=== PATIENT | female | born 1975 | race Caucasian/White ===

== ENCOUNTER → 2016-10-20 | Outpatient (CLI) | payer BC, OTHER | LOC: WI 12:55 | PROVIDERS: ATTEND Internal Medicine | DX: M81.0 Age-related osteoporosis without current pathological fracture (principal) | CPT/HCPCS: 77080 ==

== ENCOUNTER → 2016-10-26 | Outpatient (CLI) | payer BC | LOC: RAD 10:04 | PROVIDERS: ATTEND Specialist | DX: C50.212 Malignant neoplasm of upper-inner quadrant of left female breast (principal) | CPT/HCPCS: 71020; 78306; A9503; Q9969 ==

== ENCOUNTER → 2016-11-29 | Outpatient (CLI) | payer BC, OTHER ==
--- NOTE | 2016-11-30 12:41 | WOMENS IMAGING REPORT ---
EXAM DESCRIPTION: LEFT DIAGNOSTIC MAMMO W/CAD COMPLETED DATE/TIME: 11/29/2016 1:31 pm REASON FOR STUDY: C50.411 C50.212 MALIG NEOPLASM OF UPPER-INNER QUADRANT OF LEFT FEMAL COMPARISON: Multiple since 2011 TECHNIQUE: Standard craniocaudal and mediolateral oblique images of the breast recorded with digital acquisition. Additional left breast compression magnification views of the lumpectomy site in the far upper inner breast LIMITATIONS: None. FINDINGS: BREAST: Left MASSES: No suspicious masses. CALCIFICATIONS: No new or suspicious calcifications. ARCHITECTURAL DISTORTION: Postsurgical changes in the far upper inner left breast. DEVELOPING DENSITY: None. ASYMMETRY: None noted. OTHER: No other significant findings. Read with the assistance of CAD. .[facility] - R2 Cenova Version 1.3 .[facility] Imaging - R2 Cenova Version 1.3 .[facility] Imaging - R2 Cenova Version 2.4 .[facility] [place] R2 Cenova Version 2.4 .[facility] - R2 Employee Benefits Manager Version 9.2 IMPRESSION: No mammographic evidence for malignancy left breast BREAST DENSITY: c. The breasts are heterogeneously dense, which may obscure small masses. BIRAD: 2 Benign findings. RECOMMENDATION: RECOMMENDED FOLLOW UP: Patient is due for right breast screening left breast diagnos tic mammograms in May 2017 SPECIFIC INTERVENTION/IMAGING/CONSULTATION RECOMMENDED:No additional intervention/ imaging/consultati on needed at this time. COMMUNICATION:Patient notified by letter COMMENT: The patient has been notified of the results by letter per SA requirements. Additional no tification policies are in place for contacting patient with suspicious or incomplete findings. Quality ID #[id number]: The [employer] recommends an annual screening mammogram for women aged 40 years or over. This facility utilizes a reminder system to ensure that all patients receive reminder letters, and/or direct phone calls for appointments. This includes reminders for routine scr eening mammograms, diagnostic mammograms, or other Breast Imaging Interventions when appropriate. Th is patient will be placed in the appropriate reminder system. The [employer] (ACR) has developed recommendations for screening MRI of the breast s in certain patient populations, to be used in conjunction with mammography. Breast MRI surveillanc e may be appropriate for women with more than 20% lifetime risk of developing breast cancer as deter mined by genetic testing, significant family history of the disease, or history of mantle radiation f or Hodgkins Disease. ACR Practice Guidelines 2008. TECHNICAL DOCUMENTATION: FINDING NUMBER: (1) ASSESSMENT: (1) JOB ID: [id number] [employer]- All Rights Reserved
== END ==
LOC: WI 12:46
PROVIDERS: ATTEND Radiology Radiation Oncology
DX: C50.212 Malignant neoplasm of upper-inner quadrant of left female breast (principal)
CPT/HCPCS: G0206-52

== ENCOUNTER → 2016-12-30 | Outpatient (CLI) | payer BC, OTHER ==
--- NOTE | 2016-12-30 20:41 | RADIOLOGY REPORT (SQ) ---
EXAM DESCRIPTION: MRI BREAST BILAT W AND/OR WO COMPLETED DATE/TIME: 12/30/2016 3:57 pm REASON FOR STUDY: MAL PAM OF UPPER INNER QUADRANT OF FEMALE BREAST C50.212 MALIG NEOPLASM OF UPPER- INNER QUADRANT OF LEFT FEMAL COMPARISON: Mammography 11/29/2016 and priors PATHOLOGIC CORRELATION: Malignancy left breast CONTRAST TYPE AND DOSE: 20 mL Prohance. RENAL FUNCTION: None required. The patient is less than 50 years old. TECHNIQUE: MR imaging performed with a dedicated breast coil. Pre contrast T1 and T2 weighted images . Pre contrast and post contrast enhanced T1 weighted images with fat saturation. Subtraction images, 3D thick and thin MIPS, and kinetic analysis performed on an independent workstat ion. (Talking Data workstation) Magnet strength: 1.5 T LIMITATIONS: None. FINDINGS: BREAST DENSITY: c. The breasts are heterogeneously dense, which may obscure small masses. BACKGROUND PARENCHYMAL ENHANCEMENT:Moderate. RIGHT BREAST: No enhancing or suspicious masses. No clumped, regional/segmental ductal enhancement. CHEST WALL: Normal tissue planes. No abnormal internal mammary nodes. AXILLA: Normal axillary and retro-pectoral nodes. LEFT BREAST:No enhancing or suspicious masses. No clumped, regional/segmental ductal enhancement. Seroma medial breast measuring 2.6 x 1.4 cm. CHEST WALL: Normal tissue planes. No abnormal internal mammary nodes. AXILLA: Normal axillary and retro-pectoral nodes. OTHER:No identified liver, bone, or lung lesions. No other significant incidental findings. IMPRESSION: Left breast seroma. No suspicious findings. BIRAD: RIGHT BREAST: 1 Negative. LEFT BREAST: 2 Benign findings. RECOMMENDATION: RECOMMENDED FOLLOW-UP: High risk screening protocol. TECHNICAL DOCUMENTATION: JOB ID: [id number] [employer]- All Rights Reserved
== END ==
LOC: RAD 13:48
PROVIDERS: ATTEND Radiology Radiation Oncology
DX: C50.212 Malignant neoplasm of upper-inner quadrant of left female breast (principal); C77.3 Secondary and unspecified malignant neoplasm of axilla and upper limb lymph nodes
CPT/HCPCS: A9576; C8906; 77059

== ENCOUNTER → 2017-05-30 | Outpatient (CLI) | payer BC, OTHER ==
--- NOTE | 2017-05-30 17:42 | WOMENS IMAGING REPORT ---
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 Additional left breast 90 mediolateral view LIMITATIONS: None. FINDINGS: RIGHT BREAST MASSES: No suspicious masses. CALCIFICATIONS: No new or suspicious calcifications. ARCHITECTURAL DISTORTION: None. DEVELOPING DENSITY: None. ASYMMETRY: None noted. OTHER: No other significant findings. LEFT BREAST MASSES: No suspicious masses. CALCIFICATIONS: No new or suspicious calcifications. ARCHITECTURAL DISTORTION: None. DEVELOPING DENSITY: None. ASYMMETRY: None noted. OTHER: Surgical clips far upper outer quadrant left breast post lumpectomy Read with the assistance of CAD: .[facility] - R2 Cenova Version 1.3 .[facility] Imaging - R2 Cenova Version 1.[address] Imaging - R2 Cenova Version 2.4 .[facility] - R2 Cenova Version 2.4 .[facility] - R2 Steel Turner Version 9.2 IMPRESSION: No mammographic/ tomosynthesis evidence for malignancy bilaterally BREAST DENSITY: c. The breasts are heterogeneously dense, which may obscure small masses. BIRAD: 2 Benign findings. RECOMMENDATION: RECOMMENDED FOLLOW UP: Please continue yearly bilateral screening tomosynthesis in N 2017 SPECIFIC INTERVENTION/IMAGING/CONSULTATION RECOMMENDED:No additional intervention/ imaging/consultati on needed at this time. COMMUNICATION:The negative/benign results were communicated to the patient. COMMENT: The patient has been notified of the results by letter per SA requirements. Additional no tification policies are in place for contacting patient with suspicious or incomplete findings. Quality ID #[id number]: The [employer] recommends an annual screening mammogram for women aged 40 years or over. This facility utilizes a reminder system to ensure that all patients receive reminder letters, and/or direct phone calls for appointments. This includes reminders for routine scr eening mammograms, diagnostic mammograms, or other Breast Imaging Interventions when appropriate. Th is patient will be placed in the appropriate reminder system. The [place] [employer] (ACR) has developed recommendations for screening MRI of the breast s in certain patient populations, to be used in conjunction with mammography. Breast MRI surveillanc e may be appropriate for women with more than 20% lifetime risk of developing breast cancer as deter mined by genetic testing, significant family history of the disease, or history of mantle radiation f or Hodgkins Disease. ACR Practice Guidelines 2008. DBT Technology DBT is a type of tomographic mammography. With conventional mammography, overlapping breast tissue ma y make lesions difficult to detect, even with good compression. DBT uses an x-ray tube that rotates a round the breast, taking images at different angles. These images are then combined to create thin sl ices of the breast that the radiologist can view as a 3D reconstruction. The [employer] unit can perform full-field digital mammograms (2D imaging); or DBT (3D imaging); or both, in a combination mode that quickly performs both the mammogram and the tomosynthesis scan while the breast is still compressed. PQRS 6045F: Fluoroscopic imaging is not utilized for breast tomosynthesis. TECHNICAL DOCUMENTATION: FINDING NUMBER: (1) ASSESSMENT: (1) JOB ID: [id number] [employer]- All Rights Reserved
== END ==
LOC: WI 13:07
PROVIDERS: ATTEND Radiology Radiation Oncology
DX: C50.212 Malignant neoplasm of upper-inner quadrant of left female breast (principal); C77.3 Secondary and unspecified malignant neoplasm of axilla and upper limb lymph nodes
CPT/HCPCS: G0279; G0204; 77062; 77066

== ENCOUNTER → 2017-06-27 | Outpatient (CLI) | payer BC ==
[2017-06-27 18:15] LABS: ABSOLUTE LYMPHOCYTES (AUTO) 1.9 10^3/uL (0.5-4.7); ABSOLUTE MONOCYTES (AUTO) 0.4 10^3/uL (0.1-1.4); ABSOLUTE NEUT (AUTO) 3.8 10^3/uL (1.7-8.2); BASOPHILS % (AUTO) 0.6 % (0-2); EOSINOPHILS % (AUTO) 0.8 % (0-6); HEMATOCRIT 40.3 % (36.0-47.0); HEMOGLOBIN 13.8 g/dL (12.0-15.5); HGB HCT DIFFERENCE 1.1; LYMPHOCYTES % (AUTO) 30.1 % (13-45); MEAN CORPUSCULAR HEMOGLOBIN 33.9 pg (27.0-33.4); MEAN CORPUSCULAR HGB CONC 34.3 g/dL (32.0-36.0); MEAN CORPUSCULAR VOLUME 99 fl (80-97); MONOCYTES % (AUTO) 6.6 % (3-13); RED BLOOD COUNT 4.08 10^6/uL (3.72-5.28); RED CELL DISTRIBUTION WIDTH 13.2 % (11.5-14.0); SEGMENTED NEUTROPHILS % (AUTO) 61.9 % (42-78); WHITE BLOOD COUNT 6.2 10^3/uL (4.0-10.5)
[2017-06-27 18:40] LABS: ALANINE AMINOTRANSFERASE 37 U/L (9-52); ALBUMIN 4.4 g/dL (3.5-5.0); ALKALINE PHOSPHATASE 63 U/L (38-126); ASPARTATE AMINO TRANSFERASE 32 U/L (14-36); TOTAL PROTEIN 6.7 g/dL (6.3-8.2)
[2017-06-27 19:05] LABS: BILIRUBIN,DIRECT 0.2 mg/dL (0.0-0.4); BILIRUBIN,TOTAL 0.4 mg/dL (0.2-1.3)
== END ==
LOC: OD 16:55
PROVIDERS: ATTEND Radiology Radiation Oncology
DX: C50.212 Malignant neoplasm of upper-inner quadrant of left female breast (principal); C77.3 Secondary and unspecified malignant neoplasm of axilla and upper limb lymph nodes
CPT/HCPCS: 36415; 80076; 85025

== ENCOUNTER → 2018-05-30 | Outpatient (CLI) | payer BC, OTHER ==
--- NOTE | 2018-05-30 13:31 | WOMENS IMAGING REPORT ---
EXAM DESCRIPTION: 3D DX MAMMO BILAT COMPLETED DATE/TIME: 05/30/2018 10:54 am REASON FOR STUDY: BILATERAL DIAGNOSTIC MAMMO/C50.212 C50.212 MALIG NEOPLASM OF UPPER-INNER QUADRANT OF LEFT FEMAL COMPARISON: Multiple since 2011 TECHNIQUE: Standard craniocaudal and mediolateral oblique views of each breast recorded using digita l acquisition and breast tomosynthesis. Additional left breast exaggerated craniocaudad and 90 mediolateral views LIMITATIONS: None. FINDINGS: RIGHT BREAST MASSES: No suspicious masses. CALCIFICATIONS: No new or suspicious calcifications. ARCHITECTURAL DISTORTION: None. DEVELOPING DENSITY: None. ASYMMETRY: None noted. OTHER: No other significant findings. LEFT BREAST MASSES: No suspicious masses. CALCIFICATIONS: No new or suspicious calcifications. ARCHITECTURAL DISTORTION: None. DEVELOPING DENSITY: None. ASYMMETRY: None noted. OTHER: Surgical clips in the far left upper outer quadrant Read with the assistance of CAD: .[facility] - R2 Cenova Version 1.3 .[facility] Imaging - R2 Cenova Version 1.3 .[facility] Imaging - R2 Cenova Version 2.4 .[facility] [place] R2 Cenova Version 2.4 .[facility] - R2 Industrial Chemist Version 9.2 IMPRESSION: No mammographic/ tomosynthesis evidence for malignancy bilaterally BREAST DENSITY: c. The breasts are heterogeneously dense, which may obscure small masses. BIRAD: 2 Benign findings. RECOMMENDATION: RECOMMENDED FOLLOW UP: Please continue right breast screening left breast diagnostic tomosynthesis in May 2019 SPECIFIC INTERVENTION/IMAGING/CONSULTATION RECOMMENDED:No additional intervention/ imaging/consultati on needed at this time. COMMUNICATION:Patient notified by letter COMMENT: The patient has been notified of the results by letter per SA requirements. Additional no tification policies are in place for contacting patient with suspicious or incomplete findings. Quality ID #225: The [employer] recommends an annual screening mammogram for women aged 40 years or over. This facility utilizes a reminder system to ensure that all patients receive reminder letters, and/or direct phone calls for appointments. This includes reminders for routine scr eening mammograms, diagnostic mammograms, or other Breast Imaging Interventions when appropriate. Th is patient will be placed in the appropriate reminder system. The [employer] (ACR) has developed recommendations for screening MRI of the breast s in certain patient populations, to be used in conjunction with mammography. Breast MRI surveillanc e may be appropriate for women with more than 20% lifetime risk of developing breast cancer as deter mined by genetic testing, significant family history of the disease, or history of mantle radiation f or Hodgkins Disease. ACR Practice Guidelines 2008. DBT Technology DBT is a type of tomographic mammography. With conventional mammography, overlapping breast tissue ma y make lesions difficult to detect, even with good compression. DBT uses an x-ray tube that rotates a round the breast, taking images at different angles. These images are then combined to create thin sl ices of the breast that the radiologist can view as a 3D reconstruction. The [employer] unit can perform full-field digital mammograms (2D imaging); or DBT (3D imaging); or both, in a combination mode that quickly performs both the mammogram and the tomosynthesis scan while the breast is still compressed. PQRS 6045F: Fluoroscopic imaging is not utilized for breast tomosynthesis. TECHNICAL DOCUMENTATION: FINDING NUMBER: (1) ASSESSMENT: (1) JOB ID: [id number] [employer]- All Rights Reserved Reading location - IP/workstation name: [facility]
== END ==
LOC: WI 10:28
PROVIDERS: ATTEND Internal Medicine Hematology & Oncology
DX: C50.212 Malignant neoplasm of upper-inner quadrant of left female breast (principal)
CPT/HCPCS: 77066; G0279; 77062

== ENCOUNTER 2018-06-27 07:23 | Observation (INO) | payer BC, OTHER ==
--- NOTE | 2018-06-27 10:04 | PDOC H&P ---
History of Present Illness Patient complains of: Rectal pain and swelling History of Present Illness: CAREY HERMOSILLO is a 43 year old female with a 2-day history of rectal pain and swelling. The patient has experienced hemorrhoids before, however she has never had anything as severe as this. The patient denies any inciting events. She denies constipation, straining, lifting, or other strenuous activity. The patient woke up with a small amount of pain in the rectum on June 25, and the pain progressed steadily throughout the day. Today, her pain is sharp, stabbing, severe, and unrelenting. It does not radiate. Palpation and movement make it worse. Nothing makes it better. The patient denies melena, hematochezia, constipation, diarrhea, chest pain, shortness of breath, fevers, chills, nausea, vomiting, dizziness, blurry vision, orthostasis, malaise, or fatigue. The patient has a history of breast cancer. She denies any other significant medical problems. Past Medical History Cardiac Medical History: Denies: Coronary Artery Disease, Myocardial Infarction, Hypertension Pulmonary Medical History: Denies: Asthma, Bronchitis, Chronic Obstructive Pulmonary Disease (COPD), Pneumonia Neurological Medical History: Denies: Seizures Malignancy Medical History: Reports: Breast Cancer GI Medical History: Denies: Hepatitis, Hiatal Hernia Musculoskeltal Medical History: Denies: Arthritis Hematology: Denies: Anemia, Sickle Cell Disease Past Surgical History Past Surgical History: Reports: Tubal Ligation Denies: Amputation, Hysterectomy, Mastectomy, Pacemaker Social History Smoking Status: Former Smoker Hx Recreational Drug Use: No Hx Prescription Drug Abuse: No Family History Parental Family History Reviewed: Yes Children Family History Reviewed: Yes Sibling(s) Family History Reviewed.: Yes Medication/Allergy Home Medications: Alprazolam [Xanax 0.25 mg Tablet] 5 mg PO PRN PRN 04/22/14 Fluoxetine HCl [Prozac 20 mg Capsule] 40 mg PO DAILY 04/22/14 Loratadine [Claritin 10 mg Tablet] 10 mg PO DAILY 06/24/15 Ondansetron HCl [Zofran 8 mg Tablet] 8 mg PO ASDIR PRN 06/24/15 Promethazine HCl [Phenergan 25 mg Tablet] 25 - 50 mg PO ASDIR PRN 06/24/15 Oxycodone HCl/Acetaminophen [Percocet 5-325 mg Tablet] 1 - 2 tab PO ASDIR PRN #15 tablet 07/08/15 Gabapentin [Neurontin 100 mg Capsule] 100 mg PO DAILY 10/21/15 Oxycodone HCl/Acetaminophen [Percocet 5-325 mg Tablet] 1 - 2 tab PO ASDIR PRN #15 tablet 10/28/15 Allergies/Adverse Reactions: adhesive [Adhesive] Adverse Reaction (Intermediate, Verified 06/27/18 07:28) SKIN IRRITATION WITH SOME ADHESIVES Review of Systems Constitutional: ABSENT: anorexia, chills, fatigue, fever(s) Eyes: ABSENT: visual disturbances Ears: ABSENT: hearing changes Nose, Mouth, and Throat: ABSENT: sore throat Cardiovascular: ABSENT: chest pain Respiratory: ABSENT: cough, dyspnea Gastrointestinal: PRESENT: other - painful rectal swelling. ABSENT: abdominal pain, bloating, constipation, hematemesis, hematochezia, melena, nausea, vomiting Genitourinary: ABSENT: dysuria Musculoskeletal: ABSENT: back pain Integumentary: ABSENT: pruritus, rash Neurological: ABSENT: confusion, convulsions, dizziness Psychiatric: PRESENT: anxiety - history of anxiety. ABSENT: depression Hematologic/Lymphatic: ABSENT: easy bleeding, easy bruising Physical Exam Vital Signs: Temp Pulse Resp BP Pulse Ox 97.8 F 90 16 109/73 100 06/27/18 07:30 06/27/18 07:30 06/27/18 07:30 06/27/18 07:30 06/27/18 07:30 Intake & Output 06/26/18 06/27/18 06/28/18 06:59 06:59 06:59 Weight 67.2 kg General appearance: PRESENT: cooperative, mild distress - Rectal pain Head exam: PRESENT: atraumatic, normocephalic Eye exam: PRESENT: EOMI, PERRLA. ABSENT: scleral icterus Mouth exam: PRESENT: moist, neck supple Teeth exam: ABSENT: poor dentation Neck exam: ABSENT: meningismus, tenderness, thyromegaly, tracheal deviation Respiratory exam: PRESENT: clear to auscultation brigido, unlabored. ABSENT: chest wall tenderness, tachypnea, wheezes Cardiovascular exam: PRESENT: RRR Pulses: PRESENT: normal radial pulses Vascular exam: PRESENT: normal capillary refill. ABSENT: pallor GI/Abdominal exam: PRESENT: soft. ABSENT: tenderness Rectal exam: PRESENT: hemorrhoids - Thrombosed external hemorrhoid in the left lateral position Extremities exam: ABSENT: clubbing Neurological exam: PRESENT: alert, awake, oriented to person, oriented to place, oriented to time, oriented to situation, CN II-XII grossly intact. ABSENT: motor sensory deficit Psychiatric exam: ABSENT: agitated, anxious, depressed Focused psych exam: ABSENT: delusional Skin exam: ABSENT: cyanosis, erythema, jaundice Assessment & Plan - Diagnosis (1) Thrombosed external hemorrhoids Is this a current diagnosis for this admission?: Yes - Plan Summary Plan Summary: This is a 43-year-old female with a 2-day history of rectal pain and swelling. On exam, she has a very large thrombosed external hemorrhoid in the left lateral position. I have offered her several options. These include medical management versus surgical excision. The patient has chosen definitive surgical treatment. Plan for operative intervention today. Risks/benefits discussed, informed consent obtained, and all questions answered.
--- NOTE | 2018-06-27 10:43 | ER Document Report ---
ED General - General Chief Complaint: Rectal Pain Stated Complaint: RECTAL PAIN Time Seen by Provider: 06/27/18 08:38 Mode of Arrival: Ambulatory Information source: Patient TRAVEL OUTSIDE OF THE [place] IN LAST 30 DAYS: No - HPI Patient complains to provider of: Rectal pain Onset: Other - 3-year-old female presents for evaluation of rectal pain in the setting of a previous hemorrhoid. She notes that she is been having to sit into the bathtub to try and get any relief as she is been having persistent horrible rectal pain. Nothing is made it better nothing is made it worse she is never had anything like this in the past. Denies any trauma to the rectum or otherwise. - Related Data Allergies/Adverse Reactions: adhesive [Adhesive] Adverse Reaction (Intermediate, Verified 06/27/18 07:28) SKIN IRRITATION WITH SOME ADHESIVES Past Medical History - General Information source: Patient - Social History Smoking Status: Former Smoker Chew tobacco use (# tins/day): No Frequency of alcohol use: Social Drug Abuse: None Family History: None Patient has suicidal ideation: No Patient has homicidal ideation: No - Past Medical History Cardiac Medical History: Denies: Hx Coronary Artery Disease, Hx Heart Attack, Hx Hypertension Pulmonary Medical History: Denies: Hx Asthma, Hx Bronchitis, Hx COPD, Hx Pneumonia Neurological Medical History: Denies: Hx Cerebrovascular Accident, Hx Seizures Renal/ Medical History: Denies: Hx Peritoneal Dialysis Malignancy Medical History: Reports: Hx Breast Cancer GI Medical History: Denies: Hx Hepatitis, Hx Hiatal Hernia, Hx Ulcer Musculoskeletal Medical History: Denies Hx Arthritis Infectious Medical History: Denies: Hx Hepatitis Past Surgical History: Reports: Hx Gynecologic Surgery, Hx Tubal Ligation. Denies: Hx Hysterectomy, Hx Mastectomy, Hx Open Heart Surgery, Hx Pacemaker - Immunizations Hx Diphtheria, Pertussis, Tetanus Vaccination: Yes Review of Systems - Review of Systems -: Yes All other systems reviewed and negative Physical Exam - Vital signs Vitals: Temp Pulse Resp BP Pulse Ox 97.8 F 90 16 109/73 100 06/27/18 07:30 06/27/18 07:30 06/27/18 07:30 06/27/18 07:30 06/27/18 07:30 Interpretation: Normal - General General appearance: Appears well, Alert - HEENT Head: Normocephalic, Atraumatic Eyes: Normal Pupils: PERRL - Respiratory Respiratory status: No respiratory distress Chest status: Nontender Breath sounds: Normal Chest palpation: Normal - Cardiovascular Rhythm: Regular Heart sounds: Normal auscultation Murmur: No - Abdominal Inspection: Normal Distension: No distension Bowel sounds: Normal Tenderness: Nontender Organomegaly: No organomegaly - Rectal Tenderness: Yes Hemorrhoids: External - External hemorrhoid, terse, profoundly tender - Back Back: Normal, Nontender - Extremities General upper extremity: Normal inspection, Nontender, Normal color, Normal ROM, Normal temperature General lower extremity: Normal inspection, Nontender, Normal color, Normal ROM, Normal temperature, Normal weight bearing. No: Edouard's sign - Neurological Neuro grossly intact: Yes Cognition: Normal Orientation: AAOx4 Greyson Coma Scale Eye Opening: Spontaneous Jackson Coma Scale Verbal: Oriented Jackson Coma Scale Motor: Obeys Commands Jackson Coma Scale Total: 15 Speech: Normal Motor strength normal: LUE, RUE, LLE, RLE Sensory: Normal - Psychological Associated symptoms: Normal affect, Normal mood - Skin Skin Temperature: Warm Skin Moisture: Dry Skin Color: Normal Course - Re-evaluation Re-evalutation: 06/27/18 10:42 This is a 43-year-old female with profound rectal pain. On examination she has an external hemorrhoid which is tense in nature and exquisitely tender. Believe that this patient would benefit from evaluation for potential excision. Have contacted on-call surgical list Dr. Fox who agrees to evaluate the patient. He will admit this patient for operative intervention and management. - Vital Signs Vital signs: Temp Pulse Resp BP Pulse Ox 97.8 F 90 16 109/73 100 06/27/18 07:30 06/27/18 07:30 06/27/18 07:30 06/27/18 07:30 06/27/18 07:30 Discharge - Discharge Clinical Impression: Hemorrhoid thrombosis, Rectal pain Condition: Stable Disposition: ADMITTED INPATIENT Admitting Provider: Surgicalist Unit Admitted: Surgical Floor
[2018-06-27] MEDS ORDERED: KETOROLAC TROMETHAMINE 60 MG/2 ML SDV ONE (10:56)
[2018-06-27] MEDS ORDERED: ONDANSETRON HCL INJ/PF 4 MG/2 ML SDV ONE (10:56)
[2018-06-27] MEDS ORDERED: METOCLOPRAMIDE HCL INJ/PF 10 MG/2 ML SDV ONE (10:56)
[2018-06-27] MEDS ORDERED: LIDOCAINE 2% INJ-PF (20 MG/ML) 2 ML AMPUL ONE (10:56)
[2018-06-27] MEDS ORDERED: DEXAMETHASONE SOD PHOSPHATE INJ 4 MG/1 ML VIAL ONE (10:56)
[2018-06-27] MEDS ORDERED: SUCCINYLCHOLINE CHLORIDE INJ 200 MG/10 ML VIAL ONE (10:56)
[2018-06-27] MEDS ORDERED: GLUCAGON,HUMAN RECOMB 1 MG INJ SUBCUT PRN (11:22)
[2018-06-27] MEDS ORDERED: DEXTROSE 50%-WATER 25 GM/50 ML DISP.SYRIN IV PRN ×2 (11:22)
[2018-06-27] MEDS ORDERED: DEXTROSE 40% GEL 15 GM TUBE PO PRN ×2 (11:22)
[2018-06-27] MEDS ORDERED: MORPHINE SULFATE 10 MG/ML INJ IV PRN ×2 (11:22→15:18)
[2018-06-27] MEDS ORDERED: LIDOCAINE 2% JELLY 30 ML TUBE ONE (12:49)
[2018-06-27] MEDS ORDERED: BUPIVACAINE INJ/PF LIPOSOME/PF 266 MG/20 ML SDV ONE (12:49)
[2018-06-27] MEDS ORDERED: NORMAL SALINE 1000 ML 1,000 ML IV PRN (13:55)
[2018-06-27] MEDS ORDERED: METRONIDAZOLE 500 MG/NS RTU 500 MG/100 ML RTUPB IV ONE (14:28)
[2018-06-27] MEDS ORDERED: FENTANYL CITRATE INJ/PF 100 MCG/2 ML AMPUL ONE (14:34)
[2018-06-27] MEDS ORDERED: PROPOFOL INJ 200 MG/20 ML VIAL IV ONE (14:35)
[2018-06-27] MEDS ORDERED: MIDAZOLAM 2 MG/2 ML INJ ONE (14:35)
[2018-06-27] MEDS ORDERED: MEPERIDINE HCL/PF INJ 25 MG/1 ML DISP.SYRIN IV PRN (15:18)
[2018-06-27] MEDS ORDERED: FENTANYL CITRATE INJ/PF 100 MCG/2 ML AMPUL IV PRN (15:18)
[2018-06-27] MEDS ORDERED: PROMETHAZINE HCL INJ 25 MG/1 ML VIAL IV PRN (15:18)
[2018-06-27] MEDS ORDERED: ONDANSETRON HCL INJ/PF 4 MG/2 ML SDV IV PRN ×2 (15:18→17:48)
[2018-06-27] MEDS ORDERED: DIPHENHYDRAMINE HCL 50 MG/ML VIAL IV PRN (15:18)
--- NOTE | 2018-06-27 15:33 | Operative Report ---
Nonrecallable Operative Report DATE OF SURGERY: 06/27/18 PREOPERATIVE DIAGNOSIS: Thrombosed internal and external hemorrhoids of the posterior column. POSTOPERATIVE DIAGNOSIS: Same as above. OPERATION: Single column surgical hemorrhoidectomy (internal and external). SURGEON: RACHELL RAI ANESTHESIA: GA TISSUE REMOVED OR ALTERED: Right posterior hemorrhoid: COMPLICATIONS: None apparent ESTIMATED BLOOD LOSS: Minimal PROCEDURE: Drains/implants: None. Procedure in detail: After informed consent was obtained, the patient was brought into the operating room and laid in the prone jackknife position. The area of the anus and rectum were prepped and draped in a normal sterile fashion. The enlarged hemorrhoid was identified in the right posterior position. Hemorrhoids were enlarged and thrombosed from the internal to the external position. Bovie electrocautery was used to excise the hemorrhoid from the inte rnal to the external margin. The hemorrhoid was excised down to the sphincter complex. Great care was taken not to injure the sphincter complex. The defect was then closed using 3-0 chromic suture in simple running fashion. Great care was taken to reapproximate mucosa to mucosa, anoderm to anoderm, and skin to skin. Once this was completed, a dressing was fashioned, and the procedure was concluded. All sponge, instrument, and needle counts were correct x2. Condition: Stable.
[2018-06-27] MEDS ORDERED: HYDROCODONE/ACETAMINOPHEN 10-325 MG TABLET PO PRN (17:48)
[2018-06-27] MEDS ORDERED: IBUPROFEN 800 MG TABLET PO SCH (17:48)
[2018-06-27] MEDS ORDERED: LIDOCAINE 2% JELLY 5 ML TUBE TOP SCH (18:00)
[2018-06-27] MEDS ORDERED: DOCUSATE SODIUM 100 MG CAPSULE PO SCH (18:00)
--- NOTE | 2018-06-27 18:39 | PDOC DISCHARGE SUMMARY ---
General - Admit/Disc Date/PCP Admission Date/Primary Care Provider: 06/27/18 10:50 Discharge Date: 06/27/18 - Discharge Diagnosis (1) Thrombosed external hemorrhoids Is this a current diagnosis for this admission?: Yes - Additional Information Resuscitation Status: Full Code Discharge Diet: As Tolerated Discharge Activity: Balance Activity w/Rest History of Present Illness History of Present Illness: CAREY HERMOSILLO is a 43 year old female with a 2-day history of rectal pain and swelling. The patient has experienced hemorrhoids before, however she has never had anything as severe as this. The patient denies any inciting events. She denies constipation, straining, lifting, or other strenuous activity. The patient woke up with a small amount of pain in the rectum on June 25, and the pain progressed steadily throughout the day. Today, her pain is sharp, stabbing, severe, and unrelenting. It does not radiate. Palpation and movement make it worse. Nothing makes it better. The patient denies melena, hematochezia, constipation, diarrhea, chest pain, shortness of breath, fevers, chills, nausea, vomiting, dizziness, blurry vision, orthostasis, malaise, or fatigue. The patient has a history of breast cancer. She denies any other significant medical problems. Hospital Course Hospital Course: The patient was admitted to the hospital and taken to the operating room for excision of her thrombosed internal and external hemorrhoids. The patient tolerated the procedure well. She was taken to the floor in stable condition. By 06/27/2018 the patient was ambulating, tolerating a diet, her pain was controlled, and was felt that she had reached maximal hospital benefit and was fit for discharge. Physical Exam Vital Signs: Temp Pulse Resp BP Pulse Ox 97.6 F 68 16 98/66 L 99 06/27/18 17:24 06/27/18 17:24 06/27/18 17:24 06/27/18 17:24 06/27/18 17:24 Intake & Output 06/26/18 06/27/18 06/28/18 06:59 06:59 06:59 Intake Total 1600 Output Total 1 Balance 1599 Weight 67.2 kg Qualifiers - * PATIENT BEING DISCHARGED WITH ANY OF THE FOLLOWING DIAGNOSIS: No Plan Discharge Plan: Discharge home. Diet as tolerated. Activity: No strenuous activity. Follow-up with me in 7-10 days at [facility]. [place] 10/325 mg p.o. every 6 hours as needed for pain. Ibuprofen 800 mg p.o. 3 times daily with meals. Lidocaine ointment 5%, apply to rectum 3 times daily. Neosporin over-the-co unter ointment, apply to rectum 3 times daily. Fiber supplement twice daily. Soak buttock and warm soapy water twice daily and after bowel movements. [id number]-[id number] stool softeners twice daily. Time Spent: Less than 30 Minutes
[2018-06-27 18:47] VITALS: BP 96/58
== END 2018-06-27 19:05 | disposition home or self-care (01) ==
LOC: ER 07:23 → INTOOBSV 10:50 → EH 10:50 → 2N 12:12
PROVIDERS: ADMIT Surgery; ATTEND Surgery
PROC: 06BY3ZC Excision of Hemorrhoidal Plexus, Percutaneous Approach (ICD-10-PCS; principal; 2018-06-27 16:00)
DX: K64.5 Perianal venous thrombosis (principal); K64.8 Other hemorrhoids; F41.9 Anxiety disorder, unspecified; Z85.3 Personal history of malignant neoplasm of breast; Z87.891 Personal history of nicotine dependence; Z79.899 Other long term (current) drug therapy
CPT/HCPCS: 99284; 46255; G0378 ×2; J2250; J1100; J1885; J3010; J2765; J0330; J2405; J2704; C9290; J3490; 902

== ENCOUNTER → 2018-10-22 | Outpatient (CLI) | payer BC, OTHER ==
--- NOTE | 2018-10-22 11:25 | WOMENS IMAGING REPORT ---
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 LIMITATIONS: None. FINDINGS: LUMBAR SPINE: The bone mineral density (BMD) measured from L1-L4 in the AP projection correlates with a T-score of -0.7, which is normal as defined by the World Health Organization. This is stable compared to 2017 HIP: The bone mineral density (BMD) measured in the left femoral neck at the hip correlates with a T-score of -2.0, which is osteopenic as defined by the World Health Organization. This is stable compared t o 2017 IMPRESSION: 1. LUMBAR SPINE: Normal 2. HIP: Osteopenic COMMENT: The World Health Organization defines low BMD as follows: T-score: Normal: Greater than -1.0 Osteopenia: Between -1.0 and -2.5 Osteoporosis: Less than -2.5 without fractures Established osteoporosis: Less than -2.5 with fractures In general, you may wish to consider: Diagnosis Treatment Follow-up DEXA Normal BMD Prevention 2-3 years Osteopenia Prevention/Therapy 1-2 years Osteoporosis Therapy Yearly TECHNICAL DOCUMENTATION: JOB ID: [id number]- All Rights Reserved Reading location - IP/workstation name: [email or web address]
== END ==
LOC: WI 10:41
PROVIDERS: ATTEND Internal Medicine Hematology & Oncology
DX: M81.0 Age-related osteoporosis without current pathological fracture (principal); Z79.811 Long term (current) use of aromatase inhibitors
CPT/HCPCS: 77080

== ENCOUNTER → 2019-05-21 | Outpatient (CLI) | payer BC, OTHER ==
--- NOTE | 2019-05-21 11:54 | WOMENS IMAGING REPORT ---
EXAM DESCRIPTION: BILAT DIAGNOSTIC MAMMO W/CAD COMPLETED DATE/TIME: 05/21/2019 10:49 am REASON FOR STUDY: C50.212 MALIGNANT NEOPLASM OF UPPER-INNER QUADRANT OF LEFT FEMALE BREAST C50.212 MALIG NEOPLASM OF UPPER-INNER QUADRANT OF LEFT FEMAL COMPARISON: Multiple since 2011 EXAM PARAMETERS: Standard craniocaudal and mediolateral oblique views of each breast recorded using digital acquisition. Additional cone compression magnification views in the MLO and CC orientations, additional left breas t whole breast 90 mediolateral view and exaggerated craniocaudad view Read with the assistance of CAD: .FORMER[facility] - [employer] Leaf Sorter Version 9.2 LIMITATIONS: None. FINDINGS: RIGHT BREAST MASSES: No suspicious masses. CALCIFICATIONS: No new or suspicious calcifications. ARCHITECTURAL DISTORTION: None. ASYMMETRY: None noted. OTHER: No other significant findings. LEFT BREAST MASSES: No suspicious masses. CALCIFICATIONS: No new or suspicious calcifications. ARCHITECTURAL DISTORTION: None. ASYMMETRY: None noted. OTHER: Surgical clips far upper outer quadrant left breast IMPRESSION: No mammographic evidence for malignancy BREAST DENSITY: c. The breasts are heterogeneously dense, which may obscure small masses. BIRAD: ASSESSMENT: 2 Benign findings. RECOMMENDATION: RECOMMENDED FOLLOW UP: Please continue yearly right screening, left diagnostic mammo graphy/ tomosynthesis in May 2020 SPECIFIC INTERVENTION/IMAGING/CONSULTATION RECOMMENDED:No additional intervention/ imaging/consultati on needed at this time. COMMUNICATION:The negative/benign results were communicated to the patient. COMMENT: The patient has been notified of the results by letter per MQSA requirements. Additional no tification policies are in place for contacting patient with suspicious or incomplete findings. Quality ID #[id number]: The [employer] recommends an annual screening mammogram for women aged 40 years or over. This facility utilizes a reminder system to ensure that all patients receive reminder letters, and/or direct phone calls for appointments. This includes reminders for routine scr eening mammograms, diagnostic mammograms, or other Breast Imaging Interventions when appropriate. Th is patient will be placed in the appropriate reminder system. TECHNICAL DOCUMENTATION: FINDING NUMBER: (1) ASSESSMENT: (1) JOB ID: [id number] [employer]- All Rights Reserved Reading location - IP/workstation name: [email or web address]
== END ==
LOC: WI 10:15
PROVIDERS: ATTEND Internal Medicine Hematology & Oncology
DX: C50.212 Malignant neoplasm of upper-inner quadrant of left female breast (principal)
CPT/HCPCS: 77066